=== PATIENT | male | born 1965 | race African-American/Black ===

== ENCOUNTER 2022-12-20 17:12 | Emergency (ER) | payer OTHER ==
[~2022-12-20] VITALS: Ht 170.2 cm; Wt 100.0 kg
[2022-12-20 17:16] VITALS: BP 147/91; PULSE 66; RESP 18; TEMP 97.3; O2SAT 95
[2022-12-20 20:49] LABS: BASOPHILS % 1.1 % (0.0-2.0); HEMATOCRIT. 44.1 % (42.0-52.0); HEMOGLOBIN. 14.2 g/dL (14.0-18.0); LYMPHOCYTES % 18.1 % (20.0-50.0); MEAN CORPUSCULAR HGB CONC 32.3 g/dL (31.0-37.0); MEAN CORPUSCULAR VOLUME 83.8 fL (80.0-94.0); MONOCYTES % 5.5 % (2.0-8.0); NEUTROPHILS % 74.3 % (40.0-76.0); PLATELET 265 x1000/uL (130-400); RED BLOOD CELL COUNT 5.27 mill/uL (4.7-6.1); RED CELL DISTRIBUTION WIDTH 14.4 % (11.6-14.6); WHITE BLOOD COUNT 7.7 x1000/uL (4.5-11.0)
[2022-12-20 20:58] LABS: CHLORIDE 109 mEq/L (98-107); INDEX HEMOLYSI 1 (1-3); INDEX ICTERIC 1 (1-4); INDEX LIPEMIC 1 (1-3); POTASSIUM 4.8 mEq/L (3.5-5.1); SODIUM 140 mEq/L (136-145)
[2022-12-20 21:07] LABS: ALANINE AMINOTRANSFERASE 24 IU/L (13-61); ALBUMIN 4.4 g/dL (3.4-5.0); BILIRUBIN TOTAL 0.4 mg/dL (0.1-1.0); CALCIUM 9.4 mg/dL (8.5-10.1); CARBON DIOXIDE 30 mEq/L (21-32); CREATININE 0.9 mg/dL (0.6-1.3); GLUCOSE 136 mg/dL (70-105); UREA NITROGEN BLOOD 10 mg/dL (7-21)
[2022-12-20 21:10] LABS: ASPARTATE AMINOTRANSFERASE 17 IU/L (15-37); TROPONIN I HIGH SENSITIVITY 6 ng/L (<78)
== END 2022-12-20 21:22 | disposition home or self-care (01) ==
LOC: ER 17:12
DX: R07.89 Other chest pain (principal); R06.02 Shortness of breath; R55 Syncope and collapse; R94.31 Abnormal electrocardiogram [ECG] [EKG]; J45.909 Unspecified asthma, uncomplicated
CPT/HCPCS: 36415; 71045; 80053; 82962; 84484; 85025; 85379; 93005; 99285